=== PATIENT | male | born 1965 | race Caucasian/White ===

== ENCOUNTER 2019-11-01 17:20 | Inpatient (IN) | payer MEDICARE, SELFPAY ==
[2019-11-01] VITALS (8 sets, daily range): BP systolic 125–138; BP diastolic 69–82; PULSE 69–91; RESP 11–20; TEMP 36.5–36.8; O2SAT 99–100; BMI 20.9
--- NOTE | ~2019-11-01 | XR_ITS ---
EXAMINATION: XR chest 1V 11/01/2019 18:12 INDICATION: Chest pain PROCEDURE: PA view of the chest COMPARISON: No prior studies for comparison. FINDINGS: The lungs are clear. The cardiomediastinal silhouette is within normal limits. There are no pleural effusions. There is no pneumothorax suspected. IMPRESSION: 1: NO ACUTE CARDIOPULMONARY DISEASE. Reviewed, dictated and finalized at location A. [facility]
--- NOTE | ~2019-11-01 | MR_ITS ---
EXAMINATION: MR brain/brain stem wo con DATE: 11/03/2019 13:08 INDICATION: Hyponatremia. TECHNIQUE: Magnetic resonance imaging (MRI) of the brain and brainstem was performed without intraven ous contrast. Sequences included sagittal and axial T1-weighted FSE, axial diffusion-weighted FS EPI, axial T2*-weighted GRE, axial T2-weighted FLAIR Propeller, and axial T2-weighted Propeller. Apparent diffusion coefficient (ADC) maps were created. COMPARISON: Head CT 11/01/2019 FINDINGS: There is no intracranial hemorrhage, acute infarction, or abnormal intracranial mass lesion . There is a punctate focus of increased T2-weighted signal intensity in the right frontal lobe deep white matter, which is normal as an isolated finding. The ventricles are normal in size. The paranasa l sinuses are clear. The mastoid air cells are normal. The orbits are normal. IMPRESSION: 1. Normal brain. Reviewed, dictated and finalized at location A. SPECIALIST IMPRESSION: 1. Normal brain.
--- NOTE | ~2019-11-01 | CT_ITS ---
EXAMINATION: CT BRAIN W/O DATE: 11/01/2019 18:05 INDICATION: Altered mental status. Head injury. TECHNIQUE: Computed tomography (CT) of the head was performed without intravenous contrast. The dose- length product was 681.00 mGy-cm. The mA was adjusted according to patient size. Iterative reconstruc tion technique was employed. COMPARISON: No prior studies for comparison. FINDINGS: Normal brain parenchymal volume for age. Normal cameron-white differentiation. No acute intrac ranial hemorrhage, infarction, mass or mass effect. No ventriculomegaly or midline shift. Midline sagittal images demonstrate a normal corpus callosum, c raniovertebral junction and sella turcica. Basilar cisterns are patent. Paranasal sinuses and mastoids are pneumatized. No depressed skull fractures. IMPRESSION: 1. No acute intracranial abnormality. Reviewed, dictated and finalized at location A. [facility]
--- NOTE | 2019-11-01 17:30 | ED.AMS ---
HPI - Altered Mental Status General Chief Complaint: Altered Mental Status Stated Complaint: Not making any sense Time Seen by Provider: 11/01/19 17:24 Source: patient and family Mode of arrival: ambulatory Limitations: clinical condition History of Present Illness HPI narrative: A 54 y/o male presents to the ED with c/o AMS. Per patient's family, the patient is very confused and has not been listening today. The patient's son notes that today he received incoherent texts from the patient. His last known normal was on 10/30/19. The family adds that he has had a previous episode of AMS and was taken to the hospital and was diagnosed with dehydration. During his previous episode he had hallucinations. Today the pt reports LAGUNAS, but denies fever and cough. He adds that he has ABD problems and he is getting fat. The family states that the patient said he hit his head on the couch, but could not tell them any other details. He notes that he did not eat today. Pt takes Omeprazole daily. He is a smoker and drinks 15-20 beers per day. He has been heavily drinking for years, and only stops drinking when he runs out and has to have someone take him to the grocery store. A complete HPI is limited due to patient's clinical condition. complaint: altered mental status Onset (ago): unknown Severity: similar to previous episodes Consistency of symptoms: constant Context: alcohol abuse and history of similar presentation Associated symptoms: headaches and other (Possible HI) Related Data Home Medications Medication Instructions Recorded Confirmed omeprazole 40 mg PO BID 11/01/19 Allergies Allergy/AdvReac Type Severity Reaction Status Date / Time No Known Allergies Allergy Verified 11/01/19 17:41 Review of Systems Review of Systems: Narrative: A complete ROS is limited due to patient's clinical condition. Constitutional: Constitutional: Denies fever(s) Respiratory: Respiratory: Denies cough Neurologic: Reports headache(s) and Reports other (AMS, possible HI) [facility] Past Medical History Medical History (Updated 11/01/19 @ 19:49 by Mateo Gao MD) Alcohol abuse GERD (gastroesophageal reflux disease) Surgical History Surgical History (Updated 11/01/19 @ 17:56 by Shayla Osborn) Surgical history unknown Social History Social History (Updated 11/01/19 @ 17:57 by Shayla Osborn) Smoking status: Current every day smoker Tobacco type: cigarettes Second hand tobacco smoke exposure: Yes Alcohol intake: current Drinks per week: 140 Alcohol use details: 15-20 beers per day Exam Const: General: healthy appearing, no acute distress and well developed Nutritional Appearance: well nourished Orientation/consciousness: oriented to person and Other orientation findings (Alert) Limitations: no limitations HENMT: Head: normocephalic and atraumatic Ears: external ears normal General nose exam: No nasal discharge present and no epistaxis Face and sinus: face symmetric Mouth: Yes lip normal, Yes tongue normal and Yes moist mucous membranes Throat: other (No exudate, no erythema) Eyes: Conjunctivae: conjunctivae normal Sclera: sclerae normal EOM: EOMs intact bilaterally Neck: Neck: full ROM, no lymphadenopathy and supple Thyroid: thyroid normal Chest: Chest palpation & inspection: no tenderness Resp: Effort & Inspection: normal respiratory effort Auscultation: clear to auscultation bilaterally, no rales, no rhonchi, no wheezes and other (breath sounds equal) Cardio: Rate: regular rate Rhythm: regular rhythm Heart sounds: no gallops and no murmurs GI: Inspection: non-distended GI Palp: No abdominal tenderness and Yes Soft to palpation Auscultation: other (bowel sounds present) : General: Yes no CVA tenderness Back/Spine/Pelvis: Back: no CVA tenderness Thoracic/Lumbar Spine: thoracic and lumbar spine normal to inspection Skin: General skin exam: normal color and no rashes or lesions noted Neuro: G
[2019-11-01 18:01] LABS: Glucose Point of Care 122 (65-105)
[2019-11-01 18:07] LABS: Basophils Absolute Auto 0.1 K/mm3 (0.0-0.1); Basophils Percent Auto 0.4 % (0.2-1.2); Hemoglobin 14.8 g/dL (14.0-18.0); Immature Granulocyte Absolute 0.16 K/mm3 (0.00-0.031); Immature Granulocyte Percent A 1.2 % (0-0.5); Lymphocytes Absolute Auto 4.84 K/mm3 (0.9-3.2); Lymphocytes Percent Auto 35.5 % (18.3-44.2); Mean Corpuscular HGB Conc 35.2 g/dl (32-36); Mean Corpuscular Hemoglobin 31.3 pg (26-34); Mean Corpuscular Volume 88.8 fl (80-100); Mean Platelet Volume 9.9 fl (7.4-10.4); Monocytes Absolute Auto 0.5 K/mm3 (0.1-0.6); Monocytes Percent Auto 3.7 % (2.6-8.5); Neutrophils Absolute Auto 8.1 K/mm3 (1.3-6.7); Neutrophils Percent Auto 59.2 % (45.5-73.1); Platelet Count Result 283 k/mm3 (150-375); Red Blood Count 4.73 M/mm3 (4.6-6.20); Red Cell Distribution Width 11.7 % (11.5-14.5); White Blood Count 13.7 K/mm3 (4.5-10.0)
--- NOTE | 2019-11-01 18:11 | PCRCNOTE ---
[facility] DELAYED DO TO PT TAKEN TO CAT SCAN AND XRAY
[2019-11-01 18:19] LABS: Alanine Aminotransferase 18 U/L (4-50); Alkaline Phosphatase 78 U/L (38-126); Aspartate Amino Transferase 32 U/L (17-59); Bilirubin,Total 0.8 mg/dL (0.2-1.3); Blood Urea Nitrogen 9 mg/dL (9-20); Calcium 9.5 mg/dL (8.4-10.2); Carbon Dioxide 32 mmol/L (22-30); Chloride 76 mmol/L (98-107); Estimated CRCL calculation 91 ml/min; Estimated Glomerular Filt Rate > 60; Glucose 123 mg/dL (75-110); Lipase 18 U/L (23-300); Magnesium 1.9 mg/dL (1.6-2.3); Sodium 123 mmol/L (137-145)
[2019-11-01 18:20] LABS: Ethanol < 10 mg/dL (<10)
[2019-11-01 18:26] LABS: Alveolar/Arterial O2 Gradient 30.2 mmHg; Base Excess ABG 2.2 mEq/l (+/-2.0); Fractional Inspired Oxygen 21 %; HCO3 ABG 25.3 mEq/l (22.0-26.0); Oxygen Content ABG 19.8 %vol (16.0-22.0); Oxygen Saturation ABG 96.2 % (95.0-100.0); Oxyhemoglobin 91.5 % THb (90.0-100.0); PCO2 ABG 35.3 mmHg (35.0-45.0); PO2 ABG 77.3 mmHg (80.0-100.0); PO2 FiO2 Ratio Arterial Blood 3.68 %; Total Hemoglobin 15.4 g/dL (12.0-18.0); pH ABG 7.474 (7.350-7.450)
[2019-11-01 18:27] LABS: Device ROOM AIR; Site Drawn RIGHT BRACHIAL
[2019-11-01] MEDS: THIAMINE HCL INJ 500 MG in SODIUM CHLORIDE 0.9% IV 100 ML 210 MG IV CONT (18:28)
[2019-11-01 18:49] LABS: Prothrombin Time 12.4 Seconds (11.1-14.7)
[2019-11-01 18:54] LABS: Add Urine Microscopic? YES; Appearance Urine Clear (Clear); Bacteria Urine Trace /hpf; Bilirubin Urine Negative (Negative); Blood Urine Negative (Negative); Color Urine Yellow (Yellow); Glucose Urine UA Negative (Negative); Hyaline Casts Urine 20-29 /lpf; Ketones Urine 1+ mg/dL (Negative); Leukocyte Esterase Ur Negative LEU/UL (Negative); Mucus Urine Rare /lpf; Nitrate Urine Negative (Negative); Protein Urine 1+ mg/dL (Negative); Specific Grav Ur 1.018 (1.001-1.035); Squamous Epithelial Cell Urine Occasional /hpf (Few); Urobilinogen Urine Negative mg/dL (<2.0); WBC Urine 0-3 /hpf
[2019-11-01 18:56] LABS: Ammonia < 9 umol/L (9-30)
[2019-11-01 19:00] LABS: Free T4 Free Thyroxine 1.02 ng/mL (0.78-2.19)
--- NOTE | 2019-11-01 19:49 | PM.IMHP ---
H&P: HPI History of Present Illness Chief complaint: hyponatremia delirium Narrative: This is a 54 year old male known to drink 15-20 beers daily w/ history of GERD, RA, and recently diagnosed Leukemia who presented to the hospital with his son tonight secondary to acute confusion and not making sense. Apparently his son reports that the patient sent him some text messages in the morning that were just letters and didn't make any sense. He went to his house and found him wandering around confused. His son noticed that he was saying strange things like, we are almost ready to go to the [facility] . The patient told his son that he fell today and hit his head on the cough although this was not witnessed by anyone. The patient himself tonight is very confused and cannot tell me his home address or even follow simple commands on my exam. He is clearly encephalopathic. He denies any significant symptom although he states that he doesn't feel well. On my review he states that he thinks he has worsened blurry vision but hasn't seen an eye doctor in a long time. He denies any facial droop. No numbness, tingling, or focal weakness is reported. He denies any fever, chills, neck stiffness, headache, sore throat, difficulty swallowing, chest pain, shortness of breath, cough, abdominal pain, nausea, vomiting, dysuria, diarrhea or rectal bleeding. The patient's son hasn't noticed if the patinet has had any seizure like activity recently and there is no tongue biting or loss of urine reported. He has no previous history of strokes or heart disease. He has not started any new medications and its unknown if the patient is on diuretics. He was previously on prednisone for his RA but hasn't been on prednisone for some time. Tonight in the ER the patient was evaluted and Brain CT was unremarkable for any acute intracranial pathology. Routine labs demonstrated hyponatremia with a serum sodium of 123 mEq/dl. He also was found to have a mild leukocytosis of 13,700. The patient was started on hypertonic saline in the ER and we have been asked to admit him to the hospital. Review of Systems Review of Systems: All systems reviewed & are unremarkable except as noted in HPI and below PMFSH Past Medical History Medical History (Updated 11/02/19 @ 05:13 by Richy Mayers MD) Alcohol abuse GERD (gastroesophageal reflux disease) Leukemia Surgical History Surgical History Surgical history unknown Family History Family History (Updated 11/01/19 @ 20:00 by Richy Mayers MD) Father Gastric cancer Social History Social History Smoking packs per day: 2 Smoking cigarettes per day: 40.0 Years smoked: 36 Smoking pack-years: 72.00 Smoking status: Current every day smoker Tobacco type: cigarettes Second hand tobacco smoke exposure: Yes Alcohol intake: current Drinks per week: 20 Alcohol use details: 15-20 beers per day Gender identity (if verbalized by the patient): Male Spiritual care concerns: No Agree to blood products: Yes Meds Home Medications and Allergies Home Medications Medication Instructions Recorded Confirmed Type omeprazole 40 mg PO BID 11/01/19 11/01/19 History Allergies Allergy/AdvReac Type Severity Reaction Status Date / Time No Known Allergies Allergy Verified 11/01/19 17:41 Vital Signs Vital Signs - 24 hr 11/01/19 17:25 11/01/19 19:11 Temperature 36.8 C Pulse Rate 80 77 Respiratory Rate 16 11 L Blood Pressure 128/82 133/82 Pulse Oximetry 100 99 Exam Const: General: cooperative, no acute distress, alert and awake Nutritional Appearance: well nourished Orientation/consciousness: oriented to person, confusion and Other orientation findings (encephalopathic+++) HENMT: Head: normal to inspection General nose exam: Normal external nose present Face and sinus: normal faci
[2019-11-01] MEDS: SODIUM CHLORIDE 3% 500 ML 50 ML IV CONT (19:52)
[2019-11-01 20:28] LABS: Sodium Urine Random 41 meq/L
--- NOTE | 2019-11-01 20:40 | PC.NURSE ---
IMU Staff stated that Pt. room was still dirty and would call and advise when room was clean. automotive designer aware.
[2019-11-01 20:47] LABS: Amphetamine Screen Urine Negative (Negative); Barbiturate Screen Urine Negative (Negative); Benzodiazepines Screen Urine Negative (Negative); Cannabinoid Screen Urine Negative (Negative); Cocaine Screen Urine Negative (Negative); Methadone Screen Urine Negative (Negative); Opiate Screen Urine Negative (Negative); Phencyclidine Screen Urine Negative (Negative)
[2019-11-01 21:50] LABS: Blood Urea Nitrogen 9 mg/dL (9-20); Calcium 9.1 mg/dL (8.4-10.2); Carbon Dioxide 29 mmol/L (22-30); Chloride 77 mmol/L (98-107); Estimated CRCL calculation 103 ml/min; Estimated Glomerular Filt Rate > 60; Glucose 109 mg/dL (75-110); Potassium 4.4 mmol/L (3.4-5.0); Sodium 122 mmol/L (137-145)
--- NOTE | 2019-11-01 22:09 | ADMGEN ---
This patient, Denis Resendiz, was admitted to IMU Room 205-02. Patient/family oriented to hospital policies and general routines including ID bracelet, bed and alarms, visiting hours, pain management, procedures, bathroom and other care routines, personal items, smoking policy, room service/diet, and visiting hours. Valuables list has been completed. Information on how to activate the Rapid Response Team has been discussed. Patient/Family are encouraged to report perceived risks to care and to ask questions if they do not understand what they are told or what they should do.
[2019-11-01 22:27] LABS: Blood Urea Nitrogen 8 mg/dL (9-20); Calcium 9.1 mg/dL (8.4-10.2); Carbon Dioxide 28 mmol/L (22-30); Chloride 79 mmol/L (98-107); Estimated CRCL calculation 102 ml/min; Estimated Glomerular Filt Rate > 60; Glucose 104 mg/dL (75-110); Potassium 4.2 mmol/L (3.4-5.0); Sodium 121 mmol/L (137-145)
[2019-11-01] MEDS: FAMOTIDINE 20 MG/2 ML VIAL IV PUSH (23:01)
[2019-11-01] MEDS: LORAZEPAM INJ 2 MG/ML VIAL 1 MG IV PUSH (23:02)
[2019-11-01] MEDS: CHLORDIAZEPOXIDE 25 MG CAPSULE PO (23:33)
[2019-11-01] MEDS: SODIUM CHLORIDE 0.9% IV 1,000 ML 100 ML IV CONT (23:33)
[2019-11-02] VITALS (13 sets, daily range): BP systolic 127–151; BP diastolic 62–80; PULSE 72–100; RESP 16–22; TEMP 36.2–36.7; O2SAT 98–100
[2019-11-02 03:26] LABS: Blood Urea Nitrogen 7 mg/dL (9-20); Calcium 8.6 mg/dL (8.4-10.2); Carbon Dioxide 26 mmol/L (22-30); Chloride 84 mmol/L (98-107); Estimated CRCL calculation 117 ml/min; Estimated Glomerular Filt Rate > 60; Glucose 94 mg/dL (75-110); Potassium 3.8 mmol/L (3.4-5.0); Sodium 122 mmol/L (137-145)
[2019-11-02 04:37] LABS: Thyroid Stimulating Hormone Reflex 0.737 uIU/mL (0.465-4.68)
[2019-11-02] MEDS: CHLORDIAZEPOXIDE 25 MG CAPSULE PO ×4 (05:53→22:30)
--- NOTE | 2019-11-02 07:33 | PM.CNNEP ---
Assessment and Plan Assessment and plan (1) Hyponatremia: Code(s): E87.1 - Hypo-osmolality and hyponatremia Status: Acute Assessment and Plan: The patient has hyponatremia. He appears euvolemic. He says he has not had any nausea vomiting or diarrhea. He is not on diuretics. His son told the nurse that he had confusion like this before and they said that it was dehydration. His urine sodium is not low his blood pressure is okay and he does not have dry mucous membranes. He has a history of heavy alcohol abuse. Dear drinkers potomania is certainly in the realm of possibility because I do not think he eats very much besides his beer. However his urine specific gravity was not very low. Also usually the sodium will self correct fairly quickly if this is beer drinkers potomania. Because of his heavy liquid intake he could have a chronically low sodium as well. Hormones can cause low sodium as well. Thyroid is okay and we will check a cortisol level. Cancers can do this. He does have leukemia. He could have some other HIS and source of cancer as well. CONDENSER SETTER lesions can do this. His CT of the head is negative but we can get an MRI. Pulmonary lesions can do this but his chest x-ray is negative. Myeloma can cause pseudo hyponatremia and so we will check into this. His protein to albumin ratio is not extremely high and his urine anion gap is not negative. I would like to find out how his sodium is on a long-term basis so we can try to get records from his the [facility] me a doctor and his primary care doctor. We will treat the sodium with fluid restriction. Can check a sodium later today and consider another round of hypertonic saline if things are not improving. It will take a while for osmolalities to come back because those are send outs. We can continue the normal saline in case he is mildly dehydrated but if the sodium gets worse we will have to stop it. (2) Delirium due to general medical condition: Code(s): F05 - Delirium due to known physiological condition Status: Acute Assessment and Plan: Etiology of this is not clear. I am not convinced that this Sodium is doing this. The sodium could be chronic. He is so alert and his alcohol levels normal so does not seem like he is drunk. Drug screening was negative so does not look like he took anything. Alcohol withdrawal can do this but he does not have a fever. His son said he had his last drink yesterday but his alcohol level was negative. Dr. Mayers suggested Wernicke's encephalopathy. The patient is getting thiamine. We should get a neurology consultation. (3) Alcohol abuse: Code(s): F10.10 - Alcohol abuse, uncomplicated Status: Chronic (4) GERD (gastroesophageal reflux disease): Code(s): K21.9 - Gastro-esophageal reflux disease without esophagitis Status: Chronic Assessment and Plan: He is on Repka Omeprazole (5) Leukemia: Code(s): C95.90 - Leukemia, unspecified not having achieved remission Status: Chronic Assessment and Plan: His white cell count is actually not too high but does have an excess of lymphocytes. Possibly this is CLL? We can check a kappa lambda ratio and immunofixation as well as a serum viscosity to be sure that his hyponatremia or encephalopathy are not related to this. Additional Plan Discussed at length with Dr. Mayers last night and again this morning. History of Present Illness Reason for Consult Consult date: 11/02/19 Chief Complaint Chief complaint: hyponatremia delirium History of Present Illness Narrative: Denis is a very pleasant gentleman who has multiple medical problems. He has chronic alcohol abuse, drinking almost a case of beer per day. He has been doing this for a long time. He has GERD, rheumatoid arthritis, and leukemia. Apparently he was well before yesterday. His son found that he was confused yesterday, alert, talking, but not making any s
[2019-11-02 08:41] LABS: Blood Urea Nitrogen 7 mg/dL (9-20); Calcium 8.5 mg/dL (8.4-10.2); Carbon Dioxide 26 mmol/L (22-30); Chloride 84 mmol/L (98-107); Estimated CRCL calculation 102 ml/min; Estimated Glomerular Filt Rate > 60; Glucose 89 mg/dL (75-110); Potassium 3.7 mmol/L (3.4-5.0); Sodium 124 mmol/L (137-145)
[2019-11-02] MEDS: FAMOTIDINE 20 MG/2 ML VIAL IV PUSH ×2 (09:02→20:14)
[2019-11-02] MEDS: THIAMINE HCL 100 MG TABLET PO ×2 (09:02→20:14)
[2019-11-02] MEDS: SODIUM CHLORIDE 0.9% IV 1,000 ML 100 ML IV CONT (09:05)
--- NOTE | 2019-11-02 11:04 | PM.IMPN ---
Progress Note: A&P Assessment and Plan (1) Acute encephalopathy: Code(s): G93.40 - Encephalopathy, unspecified Status: Acute Assessment and Plan: Pt is still very confused at bedside, pleasant not agitated presently. Sitted in the room. Confusion can be secondary to alcohol withdrawal or hyponatremia. Correcting sodium levels, Mri brain ordered, CIMW protocol ordered. Drugs unlikley UDS was negative. (2) Hyponatremia: Code(s): E87.1 - Hypo-osmolality and hyponatremia Status: Acute Assessment and Plan: Possibly beer potomania given that he is known to drink 15-20 beers daily. Possibly SIADH in the differential as he has newly diagnosed leukemia. Light hydration, sodium monitoring. Nephrology rounding will consult neurology also. (3) Alcohol abuse: Code(s): F10.10 - Alcohol abuse, uncomplicated Status: Chronic Assessment and Plan: CIWA-AR protocol. Ativan withdrawal prophylaxis and scheduled Librium, Thiamine IV. (4) Leukemia: Code(s): C95.90 - Leukemia, unspecified not having achieved remission Status: Chronic Assessment and Plan: Continue heme-onc recommendations on dischage pt to follow his [facility] MDs (5) GERD (gastroesophageal reflux disease): Code(s): K21.9 - Gastro-esophageal reflux disease without esophagitis Status: Chronic Assessment and Plan: Continue PPI therapy. Pt states he has some GERD symptoms. Subjective Date/time seen: 11/02/19 11:04 Interval history: 54 year old male known to drink 15-20 beers daily w/ history of GERD, RA, and recently diagnosed Leukemia who presented to the hospital with his son teresa secondary to acute confusion and not making sense. Pt is confused history from daughter, pt smokes alot and drinks alot. History of leukemia sees doctor in [facility]. Na today is 124, continue to watch sodium levels. CT head and CXR is negative. Pt is awaiting MRI brain. Pt seen by nephrology continue recomendations. Review of Systems Review of Systems: All systems reviewed & are unremarkable except as noted in HPI and below Neurologic: Reports confusion Psychiatric: Psychiatric: Reports confusion Exam Const: General: cooperative, no acute distress, alert, awake and confusion Nutritional Appearance: well nourished Orientation/consciousness: oriented to person, confusion and Other orientation findings (encephalopathic+++) HENMT: Head: normal to inspection General nose exam: Normal external nose present Face and sinus: normal facial exam Mouth: Yes Normal oral and palatal mucosa present and Yes oropharynx normal Eyes: Pupils: Equal, round and reactive pupils present EOM: EOMs intact bilaterally Neck: Neck: supple and no JVD Thyroid: thyroid normal Lymphatic: lymphadenopathy not noted Resp: Effort & Inspection: normal respiratory effort Auscultation: clear to auscultation bilaterally Cardio: Rate: regular rate Rhythm: regular rhythm Heart sounds: no murmurs GI: Inspection: normal to inspection Auscultation: normal bowel sounds Skin: General skin exam: normal color and no rashes or lesions noted Neuro: General: oriented to person and confusion Cranial nerves: Yes CN's II-XII intact bilaterally and Yes Equal, round and reactive pupils present Speech: normal speech Motor exam (neuro): 5/5 motor strength present throughout Sensory Exam: normal sensation Extrem: General: normal to inspection and no edema Psych: Affect: normal affect Objective Data Vital Signs Vital Signs: Vital Signs - 24 hr 11/01/19 17:25 11/01/19 19:11 11/01/19 20:13 Temperature 36.8 C Pulse Rate 80 77 72 Pulse Rate [Monitor] Respiratory Rate 16 11 L 16 Blood Pressure 128/82 133/82 125/80 Pulse Oximetry 100 99 100 11/01/19 20:14 11/01/19 21:35 11/01/19 22:00 Temperature 36.7 C Pulse Rate 69 91 Pulse Rate [Monitor] 71 Respiratory Rate 14 20 Blood Pressure 138/73 125/80 138/73 P
[2019-11-02 11:39] LABS: Blood Urea Nitrogen 7 mg/dL (9-20); Calcium 8.7 mg/dL (8.4-10.2); Carbon Dioxide 26 mmol/L (22-30); Chloride 86 mmol/L (98-107); Estimated CRCL calculation 102 ml/min; Estimated Glomerular Filt Rate > 60; Glucose 91 mg/dL (75-110); Sodium 126 mmol/L (137-145)
[2019-11-02 12:08] LABS: Cortisol Random 5.46 ug/dL
[2019-11-02 15:28] LABS: Blood Urea Nitrogen 9 mg/dL (9-20); Calcium 8.8 mg/dL (8.4-10.2); Carbon Dioxide 28 mmol/L (22-30); Chloride 88 mmol/L (98-107); Estimated CRCL calculation 102 ml/min; Estimated Glomerular Filt Rate > 60; Glucose 99 mg/dL (75-110); Potassium 3.9 mmol/L (3.4-5.0); Sodium 130 mmol/L (137-145)
[2019-11-02] MEDS: DESMOPRESSIN ACETATE 4 MCG/ML AMP 2 MCG IV PUSH (17:34)
[2019-11-02] MEDS: SODIUM CHLORIDE 0.45% 1,000 ML 50 ML IV CONT (17:35)
[2019-11-02 19:22] LABS: Blood Urea Nitrogen 10 mg/dL (9-20); Calcium 8.7 mg/dL (8.4-10.2); Carbon Dioxide 28 mmol/L (22-30); Chloride 88 mmol/L (98-107); Estimated CRCL calculation 102 ml/min; Estimated Glomerular Filt Rate > 60; Glucose 106 mg/dL (75-110); Potassium 3.9 mmol/L (3.4-5.0); Sodium 130 mmol/L (137-145)
[2019-11-03] VITALS (15 sets, daily range): BP systolic 123–143; BP diastolic 59–89; PULSE 63–102; RESP 14–22; TEMP 36.2–36.7; O2SAT 97–100
[2019-11-03 00:12] LABS: Blood Urea Nitrogen 12 mg/dL (9-20); Calcium 8.9 mg/dL (8.4-10.2); Carbon Dioxide 28 mmol/L (22-30); Chloride 91 mmol/L (98-107); Estimated CRCL calculation 90 ml/min; Estimated Glomerular Filt Rate > 60; Glucose 96 mg/dL (75-110); Potassium 3.7 mmol/L (3.4-5.0); Sodium 130 mmol/L (137-145)
[2019-11-03] MEDS: CHLORDIAZEPOXIDE 25 MG CAPSULE PO ×4 (04:17→22:27)
--- NOTE | 2019-11-03 08:03 | PM.PNNEP ---
Progress Note: A&P Assessment and Plan (1) Hyponatremia: Code(s): E87.1 - Hypo-osmolality and hyponatremia Status: Acute Assessment and Plan: The patient has hyponatremia. He looks euvolemic. Baseline sodium was 123. He briefly dropped to 121 and then returned to 123. His sodium over the next 24 hours marleen to 130. The trend was a bit fast early on and so DDAVP was given to slow things down. Will check another sodium level today. TSH is okay. Cortisol is low normal so will check Cortrosyn stim test. He says he has had 2 endoscopies and 2 colonoscopies. The former showed Babin's esophagus. The latter studies were negative. Chest x-ray is clear Head CT was normal Urine sodium was not low Serum protein electrophoresis, serum and urine osmolality are all pending. He appears euvolemic. He says he has not had any nausea vomiting or diarrhea. He is not on diuretics. His son told the nurse that he had confusion like this before and they said that it was dehydration. His urine sodium is not low his blood pressure is okay and he does not have dry mucous membranes. He has a history of heavy alcohol abuse. Dear drinkers potomania is certainly in the realm of possibility because I do not think he eats very much besides his beer. However his urine specific gravity was not very low. Also usually the sodium will self correct fairly quickly if this is beer drinkers potomania. Because of his heavy liquid intake he could have a chronically low sodium as well. Hormones can cause low sodium as well. Thyroid is okay and we will check a cortisol level. he tells me he is on a mild bp pill. he can't remember the name. no recoreds from pcp yet. delores isnt open yet. (2) Delirium due to general medical condition: Code(s): F05 - Delirium due to known physiological condition Status: Acute Assessment and Plan: Etiology of this is not clear. improved. ?tail end of DTs? tox screens and BAL okay. neuro consult pending. (3) Alcohol abuse: Code(s): F10.10 - Alcohol abuse, uncomplicated Status: Chronic (4) GERD (gastroesophageal reflux disease): Code(s): K21.9 - Gastro-esophageal reflux disease without esophagitis Status: Chronic Assessment and Plan: He is on Omeprazole barretts by what he says. no records yet (5) Leukemia: Code(s): C95.90 - Leukemia, unspecified not having achieved remission Status: Chronic Assessment and Plan: His white cell count is actually not too high but does have an excess of lymphocytes. Possibly this is CLL? k/l pending as is viscosity. Subjective Date/time seen: 11/03/19 08:03 Interval history: Patient is alert and oriented. Much calmer and focus today. Eager for discharge Review of Systems Constitutional: Constitutional: Reports no additional constitutional complaints Eyes: Eyes: Reports no additional eye complaints ENT: Reports system reviewed and no additional complaints, except as documented Cardiovascular: Cardiovascular: Reports no additional cardiovascular complaints Exam Narrative: Exam Narrative: Well developed well-nourished in no acute distress Lungs clear Heart regular without rub Abdomen bowel sounds positive soft nontender Extremities no edema Skin no rash Objective Data Vital Signs Vital Signs: Vital Signs - 24 hr 11/02/19 10:00 11/02/19 12:00 11/02/19 14:00 Temperature 36.4 C Pulse Rate 81 93 77 Pulse Rate [Monitor] 77 Respiratory Rate 18 Blood Pressure 151/71 H Pulse Oximetry 99 11/02/19 16:00 11/02/19 18:00 11/02/19 20:00 Temperature 36.7 C Pulse Rate 92 100 88 Pulse Rate [Monitor] 77 77 Respiratory Rate 18 Blood Pressure 131/72 127/80 Pulse Oximetry 100 11/02/19 20:46 11/02/19 22:00 11/03/19 00:00 Temperature 36.2 C L Pulse Rate 91 82 74 Pulse Rate [Monitor] Respiratory Rate 22 H Blood Pressure 127
[2019-11-03] MEDS: FAMOTIDINE 20 MG/2 ML VIAL IV PUSH ×2 (08:18→20:25)
[2019-11-03] MEDS: COSYNTROPIN 0.25 MG/ML VIAL IV PUSH (08:18)
[2019-11-03] MEDS: THIAMINE HCL 100 MG TABLET PO ×2 (08:18→20:25)
[2019-11-03 08:31] LABS: Albumin Level 3.9 g/dL (3.5-5.1); Blood Urea Nitrogen 10 mg/dL (9-20); Calcium 8.8 mg/dL (8.4-10.2); Carbon Dioxide 24 mmol/L (22-30); Chloride 91 mmol/L (98-107); Estimated CRCL calculation 118 ml/min; Estimated Glomerular Filt Rate > 60; Glucose 90 mg/dL (75-110); Phosphorus 3.4 mg/dL (2.5-4.5); Potassium 3.7 mmol/L (3.4-5.0); Sodium 129 mmol/L (137-145)
--- NOTE | 2019-11-03 13:37 | CONS_ITS ---
DATE OF CONSULTATION: Patient of Dr. Richy Mayers. HISTORY: This 54 years old right-handed male has been admitted to [facility] through the emergency room with the complaint of delirium with hyponatremia. The patient has ongoing history of 1. GERD. 2. Rheumatoid arthritis. 3. Recent diagnosis of leukemia. 4. Heavy drinking 15 to 20 beers a day. He was brought in for the complaint of acute confusion. His son went to the house and found him wandering around, confused, saying strange things, he also had fallen today on the day of admission, was complaining of blurred vision. No seizures were noted by the son. He does have a past history as mentioned before of 1. Alcohol abuse. 2. GERD. 3. Leukemia. 4. 72 smoking pack years and currently drinking alcohol daily, at least 20 per week. He was taking omeprazole 40 mg twice a day. ALLERGIES: HE IS NOT ALLERGIC TO ANY MEDICATION. ? On admission, he is awake, alert, afebrile. PHYSICAL EXAMINATION: GENERAL: On examination today, he is awake, alert, cooperative, in no obvious acute distress. HEENT: Head is normocephalic with no cranial bruit. Ear, nose, throat examination is normal. NECK: Supple with no cervical bruit. No thyromegaly. No lymphadenopathy. HEART: Regular. LUNGS: Clear. ABDOMEN: Soft. NEUROLOGICAL: He is awake, alert, oriented x3. His speech no dysphasic, no dysarthric, no dysphonic. Pupils round and regular. Garcia of vision full. Extraocular movements full. Face symmetrical. Tongue midline. Motor examination revealed him to have normal strength and tone. He had obvious deformity of the metacarpophalangeal joints and interphalangeal joints bilaterally from the long duration of rheumatoid arthritis. Deep plantar flexors are otherwise symmetrical. Plantars are downgoing. There is no evidence of gross cerebellar deficits. LABORATORY DATA: Evaluation up until now include CBC with leukocytosis, WBC 13.7, hemoglobin 14.8, normal basic metabolic panel except sodium only 123, CO2 32, BUN 9, and glucose of 123. Hepatic enzymes normal with AST 32, ALT 18, alkaline phos 78, and albumin 5.0. UA with 1+ protein. Chest x-ray negative. CT scan of the head negative. IMPRESSION AND PLAN: Evaluation up until now also includes the chest x-ray and CT head as mentioned above. At present, the patient is taking only omeprazole. The patient was advised to continue the treatment as such. We will obtain the EEG. In addition, he has also been seen by the repair table operator for hypo-osmolality and hyponatremia. As per review of their notes, his hyponatremia has been attributed to the chronic heavy liquid intake. Cortisol level is being checked and MRI is being obtained and we will be followed for the hyponatremia on a long-term basis because of unclear etiology otherwise. TOMY MCLAIN M.D. CAR PICK UP DRIVER CAR PICK UP DRIVER D I MT: Dwayne
--- NOTE | 2019-11-03 14:20 | PM.IMPN ---
Progress Note: A&P Assessment and Plan (1) Acute encephalopathy: Code(s): G93.40 - Encephalopathy, unspecified Status: Acute Assessment and Plan: Pt is still very confused at bedside, pleasant not agitated presently. Confusion can be secondary to alcohol withdrawal or hyponatremia. Correcting sodium levels. CT brain and mri are negative. CIMW protocol ordered. Drugs unlikley UDS was negative. (2) Hyponatremia: Code(s): E87.1 - Hypo-osmolality and hyponatremia Status: Acute Assessment and Plan: Possibly beer potomania given that he is known to drink 15-20 beers daily. Possibly SIADH in the differential as he has newly diagnosed leukemia. Light hydration, sodium monitoring. Nephrology rounding will consult neurology also. (3) Alcohol abuse: Code(s): F10.10 - Alcohol abuse, uncomplicated Status: Chronic Assessment and Plan: CIWA-AR protocol. Ativan withdrawal prophylaxis and scheduled Librium, Thiamine IV. (4) Leukemia: Code(s): C95.90 - Leukemia, unspecified not having achieved remission Status: Chronic Assessment and Plan: Continue heme-onc, pt to follow his [facility] MDs (5) GERD (gastroesophageal reflux disease): Code(s): K21.9 - Gastro-esophageal reflux disease without esophagitis Status: Chronic Assessment and Plan: Continue PPI therapy. Pt states he has some GERD symptoms. Subjective Date/time seen: 11/03/19 14:20 Interval history: 54 year old male known to drink 15-20 beers daily w/ history of GERD, RA, and recently diagnosed Leukemia who presented to the hospital with his son teresa secondary to acute confusion. Pt is confused history from daughter, pt smokes alot and drinks alot. History of leukemia sees doctor in [facility]. Na today is 129, continue to watch sodium levels. CT head and CXR is negative. MRi is negative Pt seen by nephrology continue recomendations. Hopeful discharge soon. Review of Systems Review of Systems: All systems reviewed & are unremarkable except as noted in HPI and below Neurologic: Reports confusion Psychiatric: Psychiatric: Reports confusion Exam Const: General: confusion and other (mild pleasantly confused ) Orientation/consciousness: confusion HENMT: Head: normal to inspection General nose exam: Normal external nose present Face and sinus: normal facial exam Mouth: Yes Normal oral and palatal mucosa present and Yes oropharynx normal Eyes: Pupils: Equal, round and reactive pupils present EOM: EOMs intact bilaterally Neck: Neck: supple and no JVD Resp: Effort & Inspection: normal respiratory effort Auscultation: clear to auscultation bilaterally Cardio: Rate: regular rate Rhythm: regular rhythm Heart sounds: no murmurs GI: Inspection: normal to inspection Auscultation: normal bowel sounds Skin: General skin exam: normal color and no rashes or lesions noted Neuro: General: oriented to person and confusion Cranial nerves: Yes CN's II-XII intact bilaterally and Yes Equal, round and reactive pupils present Speech: normal speech Motor exam (neuro): 5/5 motor strength present throughout Sensory Exam: normal sensation Extrem: General: normal to inspection and no edema Psych: Affect: normal affect Objective Data Vital Signs Vital Signs: Vital Signs - 24 hr 11/02/19 16:00 11/02/19 18:00 11/02/19 20:00 Temperature 36.7 C Pulse Rate 92 100 88 Pulse Rate [Monitor] 77 77 Respiratory Rate 18 Blood Pressure 131/72 127/80 Pulse Oximetry 100 11/02/19 20:46 11/02/19 22:00 11/03/19 00:00 Temperature 36.2 C L Pulse Rate 91 82 74 Pulse Rate [Monitor] Respiratory Rate 22 H Blood Pressure 127/80 Pulse Oximetry 98 11/03/19 00:33 11/03/19 02:00 11/03/19 04:00 Temperature 36.2 C L 36.3 C L Pulse Rate 71 64 63 Pulse Rate [Monitor] Respiratory Rate 18 14 Blood Pressure 143/83 H 142/78 H Pulse Oximetry 100 99 11/03/19 0
[2019-11-03] MEDS: SODIUM CHLORIDE 0.45% 1,000 ML 50 ML IV CONT (14:53)
[2019-11-03] MEDS: NICOTINE (*PBKC) 21 MG PATCH 1 PATCH TRANSDERM (20:27)
[2019-11-04] VITALS (10 sets, daily range): BP systolic 137–151; BP diastolic 69–90; PULSE 78–128; RESP 16–20; TEMP 36.3–36.7; O2SAT 98–100
[2019-11-04 04:59] LABS: Osmolality, Urine 493 mOsm/kg (50-1200)
[2019-11-04 05:01] LABS: Viscosity 1.5 rel to H2O (1.5-1.9)
[2019-11-04 05:46] LABS: Blood Urea Nitrogen 11 mg/dL (9-20); Calcium 8.7 mg/dL (8.4-10.2); Carbon Dioxide 28 mmol/L (22-30); Chloride 96 mmol/L (98-107); Estimated CRCL calculation 103 ml/min; Estimated Glomerular Filt Rate > 60; Glucose 101 mg/dL (75-110); Potassium 3.5 mmol/L (3.4-5.0); Sodium 133 mmol/L (137-145)
[2019-11-04] MEDS: CHLORDIAZEPOXIDE 25 MG CAPSULE PO ×2 (05:58→12:40)
[2019-11-04] MEDS: FAMOTIDINE 20 MG/2 ML VIAL IV PUSH (08:30)
[2019-11-04] MEDS: THIAMINE HCL 100 MG TABLET PO (08:30)
--- NOTE | 2019-11-04 09:44 | P.CDI_ITS ---
CDI Query Clarification Request -Acute encephalopathy has been documented Please further specify type of encephalopathy * Metabolic * Toxic * Hepatic * Hypertensive * Other * Unable to determine
--- NOTE | 2019-11-04 09:44 | WPDCDIQUERY2 ---
CDI Query Clarification Request -Acute encephalopathy has been documented Please further specify type of encephalopathy Metabolic Toxic Hepatic Hypertensive Other Unable to determine
--- NOTE | 2019-11-04 12:02 | PM.PNNEP ---
Progress Note: A&P Assessment and Plan (1) Hyponatremia: Code(s): E87.1 - Hypo-osmolality and hyponatremia Status: Acute Assessment and Plan: sodium back to baseline if not better TSH and cortisol okay probably related to excessive EtOH intake based on negative testing to date follow trend (2) Delirium due to general medical condition: Code(s): F05 - Delirium due to known physiological condition Status: Acute Assessment and Plan: Neurology assessment and recommendations noted (3) Alcohol abuse: Code(s): F10.10 - Alcohol abuse, uncomplicated Status: Chronic Assessment and Plan: chronic issue (4) GERD (gastroesophageal reflux disease): Code(s): K21.9 - Gastro-esophageal reflux disease without esophagitis Status: Chronic Assessment and Plan: on omeprazole per patient, has Babin's esophagus Will continue to follow -- not opposed to discharge from renal perspective. Subjective Date/time seen: 11/04/19 12:02 No new issues or problems to report at this time; feels reasonably well; anxious for discharge. Exam Narrative: Exam Narrative: General: WD/WN male in NAD Heart: normal S1 and S2; no rub Lungs: clear to auscultation Abdomen: soft, nontender, nondistended, positive bowel sounds Extremities: no cyanosis or clubbing; no edema Skin: warm and dry Objective Data Vital Signs Vital Signs: Vital Signs Temp Pulse Pulse Resp BP Pulse Ox 11/04/19 08:23 36.5 C 93 18 151/88 H 100 11/04/19 08:00 93 18 151/88 H 100 11/04/19 06:00 87 11/04/19 04:34 36.3 C L 86 20 143/90 H 98 11/04/19 04:00 81 11/04/19 02:00 101 H 11/04/19 00:00 90 11/03/19 23:42 36.5 C 85 20 134/89 97 11/03/19 22:00 102 H 11/03/19 20:13 36.7 C 87 22 H 123/75 99 11/03/19 20:00 74 86 123/75 11/03/19 17:51 70 11/03/19 16:00 36.6 C 92 86 16 128/59 L 99 11/03/19 14:00 76 Intake/Output Intake/Output: Intake & Output 11/01/19 11/02/19 11/03/19 11/04/19 23:59 23:59 23:59 23:59 Intake Total 105 0077 1240 Output Total 6246 7950 125 Balance 105 -1003 -660 -125 Meds/Results Medications: Active Medications Generic Name Dose Route Start Last Admin Trade Name Freq PRN Reason Stop Dose Admin Chlordiazepoxide HCl 25 mg 11/01/19 23:10 11/04/19 05:58 Librium Po PO 25 mg Q6H LILIAN Administration Famotidine 20 mg 11/01/19 21:00 11/04/19 08:30 Pepcid Iv IV PUSH 20 mg Q12HR LILIAN Administration Sodium Chloride 1,000 mls @ 50 mls/hr 11/02/19 16:30 11/03/19 14:53 Sodium Chloride 0.45% IV CONT 50 mls/hr .Q20H LILIAN Administration Lorazepam 1 mg 11/01/19 19:46 11/01/19 23:02 Ativan Inj IV PUSH 1 mg Q6H PRN Administration Alcohol Withdrawal Nicotine 1 patch 11/02/19 13:25 11/03/19 20:27 Nicoderm Cq 21 Mg TRANSDERM 1 patch QAM LILIAN Administration Ondansetron HCl 4 mg 11/01/19 19:41 Zofran Inj IV PUSH Q4H PRN Nausea Thiamine HCl 100 mg 11/02/19 09:00 11/04/19 08:30 Vitamin B-1 PO 100 mg Q12HR LILIAN Administration Radiology Results: ITS Impressions Head CT 11/01/19 18:08 IMPRESSION: 1. No acute intracranial abnormality. Chest X-Ray 11/01/19 18:16 IMPRESSION: 1: NO ACUTE CARDIOPULMONARY DISEASE. Brain MRI 11/03/19 13:31 IMPRESSION: 1. Normal brain. Labs Labs: Laboratory Tests 11/01/19 18:01 11/04/19 04:25
[2019-11-04] MEDS: SODIUM CHLORIDE 0.45% 1,000 ML 50 ML IV CONT (12:39)
--- NOTE | 2019-11-04 14:22 | WPDNEUROPN ---
Progress Note: A&P Assessment and Plan (1) GERD (gastroesophageal reflux disease): Code(s): K21.9 - Gastro-esophageal reflux disease without esophagitis Status: Chronic (2) Alcohol abuse: Code(s): F10.10 - Alcohol abuse, uncomplicated Status: Chronic (3) Acute encephalopathy: Code(s): G93.40 - Encephalopathy, unspecified Status: Acute (4) Leukemia: Code(s): C95.90 - Leukemia, unspecified not having achieved remission Status: Chronic (5) Hyponatremia: Code(s): E87.1 - Hypo-osmolality and hyponatremia Status: Acute (6) Delirium due to general medical condition: Code(s): F05 - Delirium due to known physiological condition Status: Acute Additional Plan stable/home Review of Systems Review of Systems: All systems reviewed & are unremarkable except as noted in HPI and below Exam Const: General: cooperative, healthy appearing, comfortable and no acute distress Eyes: General: appearance normal, both eyes and all related structures Resp: Effort & Inspection: normal respiratory effort and able to speak in complete sentences Auscultation: clear to auscultation bilaterally GI: Auscultation: normal bowel sounds Skin: General skin exam: no rashes or lesions noted Neuro: General: patient oriented x3 Cranial nerves: Yes CN's II-XII intact bilaterally, Yes Equal, round and reactive pupils present, Yes Nystagmus not present, Yes Normal facial strength present, Yes Midline tongue present, Yes Normal gag reflex present, Yes Ability to bilaterally rotate head present and Yes Ability to bilaterally elevate shoulders present Cognition (Neuro): normal cognition Speech: normal speech Motor exam (neuro): 5/5 motor strength present throughout Sensory Exam: normal sensation Deep tendon reflexes (DTR's): Right triceps reflex intensity grade: 1+, Left triceps reflex intensity grade: 1+, Rt Biceps (C5, C6): 1+, Left biceps reflex intensity grade: 1+, Right brachioradialis reflex intensity grade: 1+, Left brachioradialis reflex intensity grade: 1+, Right patellar reflex intensity grade: 1+, Left patellar reflex intensity grade: 1+ and Left ankle reflex intensity grade: 1+ Plantar Reflex Responses: downgoing: bilateral Coordination: [id number] test normal Objective Data Vital Signs Vital Signs: Vital Signs - 24 hr 11/03/19 16:00 11/03/19 17:51 11/03/19 20:00 Temperature 36.6 C Pulse Rate 92 70 74 Pulse Rate [Monitor] 86 86 Respiratory Rate 16 Blood Pressure 128/59 L 123/75 Pulse Oximetry 99 11/03/19 20:13 11/03/19 22:00 11/03/19 23:42 Temperature 36.7 C 36.5 C Pulse Rate 87 102 H 85 Pulse Rate [Monitor] Respiratory Rate 22 H 20 Blood Pressure 123/75 134/89 Pulse Oximetry 99 97 11/04/19 00:00 11/04/19 02:00 11/04/19 04:00 Temperature Pulse Rate 90 101 H 81 Pulse Rate [Monitor] Respiratory Rate Blood Pressure Pulse Oximetry 11/04/19 04:34 11/04/19 06:00 11/04/19 08:00 Temperature 36.3 C L Pulse Rate 86 87 93 Pulse Rate [Monitor] Respiratory Rate 20 18 Blood Pressure 143/90 H 151/88 H Pulse Oximetry 98 100 11/04/19 08:23 11/04/19 13:14 Temperature 36.5 C 36.7 C Pulse Rate 93 95 Pulse Rate [Monitor] Respiratory Rate 18 16 Blood Pressure 151/88 H 137/69 Pulse Oximetry 100 100 Intake/Output Intake/Output: Intake & Output 11/01/19 11/02/19 11/03/19 11/04/19 23:59 23:59 23:59 23:59 Intake Total 105 1547 1240 1000 Output Total 2550 1900 125 Balance 105 1003 660 875 Meds/Results Medications: Active Medications Generic Name Dose Route Start Last Admin Trade Name Alonzo PRN Reason Stop Dose Admin Chlordiazepoxide HCl 25 mg 11/01/19 23:10 11/04/19 12:40 Librium Po PO 25 mg Q6H LILIAN Administration Famotidine 20 mg 11/01/19 21:00 11/04/19 08:30 Pepcid Iv IV PUSH 20 mg Q12HR LILIAN Administration Sodium Chloride 1,000 mls @ 50 mls/hr 11/02/19 16:30
--- NOTE | 2019-11-04 14:28 | PM.DS ---
DS: Diagnosis Admitting Diagnosis Admitting Diagnosis: Encephalopathy, unspecified Discharge Diagnosis (1) Acute encephalopathy: Code(s): G93.40 - Encephalopathy, unspecified Status: Acute Assessment and Plan: Unable to determine the cause the acute encephalopathy Manuel possibly secondary to ETOH withdrawal, versus electrolyte imbalance versus DOMINIC CIMW protocol scores low Drugs unlikley UDS was negative. Neuro consulted-clear discharge (2) Hyponatremia: Code(s): E87.1 - Hypo-osmolality and hyponatremia Status: Acute Assessment and Plan: Possibly beer potomania given that he is known to drink 15-20 beers daily. Possibly SIADH in the differential as he has newly diagnosed leukemia. Neurology consulted-to discharge (3) Alcohol abuse: Code(s): F10.10 - Alcohol abuse, uncomplicated Status: Chronic Assessment and Plan: CIWA-AR protocol. Ativan withdrawal prophylaxis and scheduled Librium, Thiamine IV. (4) Leukemia: Code(s): C95.90 - Leukemia, unspecified not having achieved remission Status: Chronic Assessment and Plan: Continue heme-onc, pt to follow his [facility] MDs (5) GERD (gastroesophageal reflux disease): Code(s): K21.9 - Gastro-esophageal reflux disease without esophagitis Status: Chronic Assessment and Plan: Continue PPI therapy. Pt states he has some GERD symptoms. DS: Summary Time Spent with Patient Time attestation: Total time spent providing and/or coordinating discharge services:60 Exam Const: General: confusion and other (mild pleasantly confused ) Nutritional Appearance: well nourished Orientation/consciousness: oriented to person and confusion HENMT: Head: normal to inspection General nose exam: Normal external nose present Face and sinus: normal facial exam Mouth: Yes Normal oral and palatal mucosa present and Yes oropharynx normal Eyes: Pupils: Equal, round and reactive pupils present EOM: EOMs intact bilaterally Neck: Neck: supple and no JVD Thyroid: thyroid normal Lymphatic: lymphadenopathy not noted Resp: Effort & Inspection: normal respiratory effort Auscultation: clear to auscultation bilaterally Cardio: Rate: regular rate Rhythm: regular rhythm Heart sounds: no murmurs GI: Inspection: normal to inspection Auscultation: normal bowel sounds Skin: General skin exam: normal color and no rashes or lesions noted Neuro: General: oriented to person and confusion Cranial nerves: Yes CN's II-XII intact bilaterally and Yes Equal, round and reactive pupils present Speech: normal speech Motor exam (neuro): 5/5 motor strength present throughout Sensory Exam: normal sensation Extrem: General: normal to inspection and no edema Psych: Affect: normal affect DS: Data Data Completed and Pending Labs on day of discharge: Labs from last 24 hours 11/04/19 11/02/19 11/02/19 04:25 11:10 11:09 Serum Viscosity 1.5 Sodium 133 L Potassium 3.5 Chloride 96 L Carbon Dioxide 28 BUN 11 Creatinine 0.70 Estim Creat Clear Calc 103 Estimated GFR > 60 Glucose 101 Serum Osmolality 261 L Calcium 8.7 Urine Osmolality Urine Immunofixation 11/02/19 11/01/19 10:44 20:16 Serum Viscosity Sodium Potassium Chloride Carbon Dioxide BUN Creatinine Estim Creat Clear Calc Estimated GFR Glucose Serum Osmolality Calcium Urine Osmolality 493 Urine Immunofixation see below Discharge Plan Discharge Attending physician on discharge: Henri Morales Consulting providers: Dennis Gonzalez ; Andre Salazar Discharging Clinician: Kendra Kolb Anticipated Discharge Date/Time: 11/04/19 14:28 Patient Disposition: Home, Self-Care Activity: unlimited and other - see discharge instructions Diet: regular Discharge Instructions: Ok to discharge if cleared by specialty Take medications as prescibed. Follow up with
[2019-11-05 05:19] LABS: Albumin 3.7 g/dL (3.8-4.8); Alpha 1 Globulin 0.4 g/dL (0.2-0.3); Alpha 2 Globulin 0.7 g/dL (0.5-0.9); Beta 1 Globulin 0.3 g/dL (0.4-0.6); Gamma Globulin 0.9 g/dL (0.8-1.7); Protein, Total 6.2 g/dL (6.1-8.1)
[2019-11-08 00:15] LABS: Kappa\\Lambda Light Chains 0.49 (0.26-1.65); Lambda Light Chain 23.5 mg/L (5.7-26.3)
== END 2019-11-04 16:10 | disposition home or self-care (01) | DRG 641 ==
LOC: ANHED 19:49 → ANHIMU 23:20
PROVIDERS: Family Medicine; Internal Medicine Nephrology; Admitting Provider Family Medicine; Emergency Provider Emergency Medicine; Visit Provider Family Medicine
DX: E87.1 Hypo-osmolality and hyponatremia (principal); C95.90 Leukemia, unspecified not having achieved remission; F05 Delirium due to known physiological condition; G93.40 Encephalopathy, unspecified; K21.9 Gastro-esophageal reflux disease without esophagitis; F10.10 Alcohol abuse, uncomplicated; F17.210 Nicotine dependence, cigarettes, uncomplicated; M06.9 Rheumatoid arthritis, unspecified
CPT/HCPCS: 36415; 36600; 70450; 70551; 71045; 80048; 80053; 80069; 80307; 81001; 82140; 82533; 82805; 83690; 83735; 83883; 83930; 83935; 84155; 84165; 84300; 84439; 84443; 85025; 85610; 85810; 86334; 86335; 96361; 96365; 99291; A9270; J0834; J2060; J2597; J3411; J7030; J7131

== ENCOUNTER → 2020-12-03 11:19 | Outpatient (CLI) | payer MEDICARE, SELFPAY ==
--- NOTE | ~2020-12-03 | XR_ITS ---
XR finger 1st RT min 2V DATE: 12/03/2020 11:45 INDICATION: Squamous cell carcinoma of skin of right upper limb TECHNIQUE: 3 views COMPARISON: None FINDINGS: There is osteoarthritic change and flexion deformity at the first metacarpophalangeal joint . No fracture or dislocation of the first digit is evident. There appears to be amputation of the secon d digit phalanges but this area is only partially visualized. IMPRESSION: Osteoarthritic change in flexion deformity at first metacarpophalangeal joint Reviewed, dictated and finalized at location B. IMPRESSION: Osteoarthritic change in flexion deformity at first metacarpophalan geal joint
== END ==
PROVIDERS: PCP Family Medicine; Visit Provider Nurse Practitioner
DX: C44.622 Squamous cell carcinoma of skin of right upper limb, including shoulder (principal); M19.041 Primary osteoarthritis, right hand
CPT/HCPCS: 73140

== ENCOUNTER → 2020-12-15 02:04 | Outpatient (CLI) | payer MEDICARE, SELFPAY ==
[2020-12-15 19:33] LABS: SARS-CoV-2 RNA PCR Negative
== END ==
PROVIDERS: PCP Family Medicine; Visit Provider Surgery Plastic and Reconstructive Surgery
DX: Z01.812 Encounter for preprocedural laboratory examination (principal); Z20.822 Contact with and (suspected) exposure to COVID-19
CPT/HCPCS: C9803; U0003; U0005

== ENCOUNTER → 2020-12-29 02:33 | Outpatient (CLI) | payer MEDICARE, SELFPAY ==
[2020-12-29 19:43] LABS: SARS-CoV-2 RNA PCR Negative
== END ==
PROVIDERS: PCP Family Medicine; Visit Provider Surgery Plastic and Reconstructive Surgery
DX: Z01.812 Encounter for preprocedural laboratory examination (principal); Z20.822 Contact with and (suspected) exposure to COVID-19
CPT/HCPCS: C9803; U0003; U0005

== ENCOUNTER 2021-01-01 00:17 | Day surgery (SDC) | payer MEDICARE, SELFPAY ==
[2020-12-10 15:15] VITALS: BMI 23.0
--- NOTE | 2020-12-18 12:13 | PC.NURSE ---
Pt states no changes in health history or medications since original interview. New Covid date/time and pre-op instructions confirmed with pt. Pt denies any questions at this time.
--- NOTE | 2021-01-01 05:54 | ECG_ITS ---
Measurements Intervals [place] Rate: 96 P: 69 MN: 131 QRS: 64 QRSD: 89 T: 72 QT: 324 QTc: 411 Interpretive Statements SINUS RHYTHM NORMAL ECG Electronically Signed On 01-01-2021 7:23:54 CDT by Gui Trinh D.O.
--- NOTE | 2021-01-01 06:30 | WPDANESEPPF ---
Anes - Initial Pre Proc Eval Procedure: Operation Date: 01/01/21 07:30 Proposed Procedures p Excision Right Thumb Squamous Cell Carcinoma with Frozen Section, - Sukumar Mireles MD s Possible Amputation Right Thumb - Sukumar Mireles MD Date/Time: 01/01/21 06:30 Surgeon: Sukumar Mireles MD Pre Op Diagnosis: sq cell CA right thumb Patient Data Age: 55 Gender: M Height: 5 ft 11 in Weight: 74.8 kg Allergies Allergy/AdvReac Type Severity Reaction Status Date / Time No Known Allergies Allergy Verified 12/18/20 12:13 Home Medications Medication Instructions Recorded Confirmed Type cyanocobalamin 2 mg-levomefolate 1 tablet PO DAILY #90 tablet 04/10/20 12/18/20 Rx ayaz 1.13 mg-pyridoxine 25 mg tablet omeprazole 40 mg capsule,delayed 40 mg PO BID #180 cap 10/26/20 12/18/20 Rx release thiamine HCl (vitamin B1) 50 mg 50 mg PO DAILY #90 tablet 12/07/20 12/18/20 Rx tablet lisinopril 10 mg PO DAILY 12/10/20 12/18/20 History vitamin B complex [B 1 tablet PO DAILY 12/10/20 12/18/20 History Complex-Vitamin B12] Patient hx anesthesia problems: none Family hx anesthesia problems: none PMFSH Past Medical History Medical History (Updated 12/03/20 @ 10:34 by Bozena Rivera RN) Alcohol abuse Alcohol abuse Anxiety Babin's esophageal ulceration GERD (gastroesophageal reflux disease) Hypertension Leukemia Rheumatoid arthritis Seizure Surgical History Surgical History (Updated 01/01/21 @ 06:33 by Severo Guzman MD) H/O inguinal hernia repair Surgical history unknown Family History Family History Father Gastric cancer Other Alzheimer's dementia Carcinoma of colon Diabetes mellitus Glaucoma Social History Social History Smoking packs per day: 2 Smoking cigarettes per day: 40.0 Years smoked: 30 Smoking pack-years: 60.00 Smoking status: Current every day smoker Tobacco type: cigarettes Second hand tobacco smoke exposure: Yes Alcohol intake: current Drinks per week: 42 Substance use: never Substance use type: does not use Living arrangements: with family Gender identity (if verbalized by the patient): Male Spiritual care concerns: No Agree to blood products: Yes Anes - Eval Final PreProcedure Day of Procedure 01/01/21 06:30 Patient weight: normal Heart: regular rate and rhythm Lungs: clear to auscultation Airway: Mallampati scale class II and special considerations poor dentition Neurological: alert and oriented Last oral intake: >/= 8 hours ASA classification: III Emergent: no Anesthetic plan: proceed Anesthesia type and monitoring: general ETT and standard monitoring Informed Consent: The patient's anesthetic plan and its attendant risks and benefits were discussed with the patient/family/POA. Questions were solicited and answers provided to the satisfaction of the patient/family/POA.
[2021-01-01] MEDS: LACTATED RINGERS 1,000 ML 30 ML IV CONT (06:35)
[2021-01-01 06:54] VITALS: BP 136/95; PULSE 109; RESP 16; TEMP 36.7; O2SAT 98
--- NOTE | 2021-01-01 07:04 | WPDHPUPDATE1 ---
History and Physical Update Update Date/Time: 01/01/21 07:04 History and Physical has been reviewed, including an updated exam of the patient. There are NO changes in the patient's condition. Risks, benefits, and alternatives have been discussed and questions answered. Patient agrees to proceed with procedure.
[2021-01-01] MEDS: ceFAZolin 2 GM/D5W 50 ML 2 GM/50 ML BAG IVPB (07:23)
[2021-01-01] MEDS: LIDO 1%/EPINEPHRINE 1:100,000 50 ML VIAL 30 ML INFILTRATE (08:16)
[2021-01-01 09:02] VITALS: BP 112/67; PULSE 98; RESP 12; TEMP 36.6; O2SAT 99
[2021-01-01 09:15] VITALS: BP 108/65; PULSE 87; RESP 18; O2SAT 92
--- NOTE | 2021-01-01 09:28 | PM.PROC ---
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 I want them to be very realistic about the risks involved as well as expectations. Again today we went all the options making sure they were well informed. Discussed the protocol. Our plan. Aftercare. All questions answered and consent obtained. They voiced understanding. He was taken to the operating room placed supine on the operating room table. Anesthesia provided by anesthesiology and prepped and draped in a standard sterile fashion. Surgical time-out was taken. 1% lidocaine and 0.25% Marcaine with epinephrine was used to provide a digital block. Tourniquet was inflated to 250 mmHg. Fifteen blade used to make an incision around the obvious portion. This included the nail as well as the nail sterile matrix. I did remove the nail prior to proceeding. Tourniquet released. Pathology believe we had clear margins. There was a small section around 9:00 a.m. that was deep near the bone. Also central deep at the bone level. This did not appear to be an aggressive invasive and pathology suspected he likely has a clear margin at the periosteum. Unfortunately this deep margin is bone and they were unable to do frozen section on this. We had a lengthy discussion as well as discussed with emergency contact and proceeded with shaving the superficial portion of the bone sending it to pathology to see if there is any invasive carcinoma in the bone. Xeroform dressing was placed. He was taken to the PACU without difficulty. All instrument sponge counts were correct at the end of the case. Anesthesia: GLMA Surgeon: Sukumar Mireles MD Estimated blood loss (mL): 2 Drains: No Packing: Yes (Bulky dressing) Pathology: yes (SCC right dorsal thumb) Complications: No immediate complications Condition: stable Disposition: PACU Findings: The superficial bone taken from dorsum right thumb and sent to pathology as permanent section as they were unable to do frozen section on this.
[2021-01-01 09:30] VITALS: BP 122/73; PULSE 87; RESP 12; O2SAT 96
[2021-01-01 09:34] VITALS: BP 123/72; PULSE 78; RESP 20
[2021-01-01 10:00] VITALS: BP 116/65; PULSE 70; RESP 20
== END 2021-01-01 10:15 | disposition home or self-care (01) ==
PROVIDERS: PCP Family Medicine; Visit Provider Surgery Plastic and Reconstructive Surgery
PROC: (CPT 26210; principal; 2021-01-01 07:30)
DX: C44.622 Squamous cell carcinoma of skin of right upper limb, including shoulder (principal); I10 Essential (primary) hypertension; K21.9 Gastro-esophageal reflux disease without esophagitis; M06.9 Rheumatoid arthritis, unspecified; F41.9 Anxiety disorder, unspecified; Z85.6 Personal history of leukemia; F17.210 Nicotine dependence, cigarettes, uncomplicated
CPT/HCPCS: 26210; 88305; 88307; 88309; 88311; 88331; 88332; 93005; C9803; J0690; J1100; J2250; J2405; J2704; J3010; J7120; U0003; U0005

== ENCOUNTER → 2021-01-17 16:20 | Outpatient (REF) | payer MEDICARE, SELFPAY | LOC: ANHLAB 16:20 | PROVIDERS: PCP Family Medicine; Visit Provider Surgery Plastic and Reconstructive Surgery | DX: C44.622 Squamous cell carcinoma of skin of right upper limb, including shoulder (principal) | CPT/HCPCS: 88305 ==

== ENCOUNTER 2021-07-03 21:43 | Emergency (ER) | payer MEDICARE, SELFPAY ==
--- NOTE | ~2021-07-03 | CT_ITS ---
EXAMINATION: CT brain wo con INDICATION: Transient alteration of awareness COMPARISON: 11/01/2019 TECHNIQUE: Standard unenhanced head CT. The dose-length product (DLP) was 605.33 mGy-cm. The mA was a djusted according to patient size. Iterative reconstruction technique was employed. FINDINGS: There is no intracranial hemorrhage, acute infarction, or abnormal mass lesion. The ventric les are normal. There is no abnormal mass effect or midline shift. The cameron-white matter differentiat ion is normal. The basal cisterns are patent. The orbits are normal. The paranasal sinuses, mastoids and calvarium are normal. IMPRESSION: 1. No acute intracranial abnormality. Reviewed, dictated and finalized at location A.
[2021-07-03 22:07] VITALS: BP 139/86; PULSE 80; RESP 14; TEMP 36.7; O2SAT 100
--- NOTE | 2021-07-03 22:25 | ECG_ITS ---
Measurements Intervals [place] Rate: 76 P: 67 MT: 140 QRS: 60 QRSD: 88 T: 68 QT: 378 QTc: 426 Interpretive Statements SINUS RHYTHM NORMAL ECG Electronically Signed On 07-04-2021 6:27:25 CDT by Gui Trinh D.O.
[2021-07-03 22:43] VITALS: BP 137/78; PULSE 76; RESP 16; O2SAT 99
[2021-07-03] MEDS: SODIUM CHLORIDE 0.9% IV 1,000 ML 150 ML IV CONT (22:57)
[2021-07-03 23:05] LABS: Basophils Absolute Auto 0.1 K/mm3 (0.0-0.1); Basophils Percent Auto 0.5 % (0.2-1.2); Eosinophils Absolute Auto 0.1 K/mm3 (0-0.3); Eosinophils Percent Auto 0.6 % (0-4.4); Hematocrit 40.2 % (42.0-52.0); Hemoglobin 14.1 g/dL (14.0-18.0); Immature Granulocyte Absolute 0.03 K/mm3 (0.00-0.031); Immature Granulocyte Percent A 0.3 % (0-0.5); Lymphocytes Absolute Auto 4.25 K/mm3 (0.9-3.2); Lymphocytes Percent Auto 38.3 % (18.3-44.2); Mean Corpuscular HGB Conc 35.1 g/dl (32-36); Mean Corpuscular Hemoglobin 32.5 pg (26-34); Mean Corpuscular Volume 92.6 fl (80-100); Mean Platelet Volume 9.9 fl (7.4-10.4); Monocytes Absolute Auto 0.9 K/mm3 (0.1-0.6); Monocytes Percent Auto 8.5 % (2.6-8.5); Neutrophils Absolute Auto 5.8 K/mm3 (1.3-6.7); Neutrophils Percent Auto 51.8 % (45.5-73.1); Platelet Count Result 219 k/mm3 (150-375); Red Blood Count 4.34 M/mm3 (4.6-6.20); Red Cell Distribution Width 11.9 % (11.5-14.5); White Blood Count 11.1 K/mm3 (4.5-10.0)
[2021-07-03 23:18] LABS: Ethanol < 10 mg/dL (<10)
[2021-07-03 23:19] LABS: Alanine Aminotransferase 25 U/L (4-50); Albumin Level 4.3 g/dL (3.5-5.1); Alkaline Phosphatase 64 U/L (38-126); Anion Gap 9 mmol/L (8-16); Aspartate Amino Transferase 53 U/L (17-59); Bilirubin,Total 0.9 mg/dL (0.2-1.3); Blood Urea Nitrogen 3 mg/dL (9-20); Calcium 9.1 mg/dL (8.4-10.2); Carbon Dioxide 22 mmol/L (22-30); Chloride 91 mmol/L (98-107); Estimated CRCL calculation 144 ml/min; Estimated Glomerular Filt Rate > 60; Glucose 94 mg/dL (65-110); Sodium 122 mmol/L (137-145)
[2021-07-03 23:31] LABS: Troponin I < 0.012 ng/mL (0.000-0.034)
--- NOTE | 2021-07-03 23:49 | ED.NEUROSD ---
HPI - Neuro Symptoms/Deficit General Chief Complaint: Neuro Symptoms/Deficit Stated Complaint: altered mental status Time Seen by Provider: 07/03/21 22:22 Source: patient Mode of arrival: ambulatory Limitations: no limitations History of Present Illness HPI Narrative: 56-year-old with a history of hypertension, remote history of seizure was brought in by son with slurring of the words earlier this evening. Patient states he was drinking beer and his words were slurring at that time. He states his speech at this time is clear. He also states that he had minor headache. No history of fall. Denies any weakness. Onset (ago): hour(s) (2) Timing confirmed by: family member Location: speech Severity: mild Relieving factors: none Exacerbating factors: none Context: sudden onset On Anticoagulants: No Associated symptoms: denies other symptoms Related Data Home Medications Medication Instructions Recorded Confirmed vitamin B complex [B 1 tablet PO DAILY 12/10/20 01/21/21 Complex-Vitamin B12] Allergies Allergy/AdvReac Type Severity Reaction Status Date / Time No Known Allergies Allergy Verified 07/03/21 22:56 Review of Systems Review of Systems: All systems reviewed & are unremarkable except as noted in HPI and below Constitutional: Constitutional: Reports no additional constitutional complaints Eyes: Eyes: Reports no additional eye complaints ENT: Reports system reviewed and no additional complaints, except as documented Cardiovascular: Cardiovascular: Reports no additional cardiovascular complaints Respiratory: Respiratory: Reports no additional respiratory complaints Gastrointestinal: Gastrointestinal: Reports no additional gastrointestinal complaints Musculoskeletal: Musculoskeletal: Reports no additional musculoskeletal complaints Neurologic: Reports as per HPI [facility] Past Medical History Medical History Alcohol abuse Alcohol abuse Anxiety Babin's esophageal ulceration GERD (gastroesophageal reflux disease) Hypertension Leukemia Rheumatoid arthritis Seizure Surgical History Surgical History H/O inguinal hernia repair Surgical history unknown Family History Family History Father Gastric cancer Other Alzheimer's dementia Carcinoma of colon Diabetes mellitus Glaucoma Social History Social History Smoking packs per day: 2 Smoking cigarettes per day: 40.0 Years smoked: 30 Smoking pack-years: 60.00 Smoking status: Current every day smoker Tobacco type: cigarettes Second hand tobacco smoke exposure: Yes Alcohol intake: current Drinks per week: 42 Alcohol use details: 10-15 beer/day Substance use: never Substance use type: does not use Gender identity (if verbalized by the patient): Male Spiritual care concerns: No Agree to blood products: Yes Exam Narrative: GENERAL: Well-appearing, well-nourished, and in no acute distress. HEAD: Normocephalic, atraumatic. EYES: PERRLA and EOMI. ENT: Nares clear, no rhinorrhea or epistaxis. Mucous membranes moist. No facial droop NECK: Supple. CHEST: Clear to auscultation. No respiratory distress. HEART: Regular rate and rhythm. No murmur heard. Normal peripheral pulses. ABDOMEN: Soft, nontender, nondistended, normal active bowel sounds. EXTREMITIES: Normal range of motion. No edema. SKIN: Warm, dry, no rash. NEURO: No focal deficits. Alert and oriented x3. PSYCH: Normal mood and affect. Course Course Emergency Course: Patient had no neuro deficit while he was here in the ER. His NIH score was 0. I did give him a 1 L of normal saline. Patient states he is feeling much better. Informed him about his lab work, CT findings. Advised him to take aspirin daily. Follow-up with the neurolog
[2021-07-04 00:18] VITALS: BP 134/79; PULSE 80; RESP 17; O2SAT 98
== END 2021-07-04 00:20 | disposition home or self-care (01) ==
LOC: ANHED 07-04 00:06
PROVIDERS: Emergency Provider Family Medicine; PCP Family Medicine
DX: R51.9 Headache, unspecified (principal); R47.81 Slurred speech; F17.210 Nicotine dependence, cigarettes, uncomplicated; K21.9 Gastro-esophageal reflux disease without esophagitis; I10 Essential (primary) hypertension; Z79.899 Other long term (current) drug therapy
CPT/HCPCS: 36415; 70450; 80053; 80307; 84484; 85025; 93005; 96360; 99284; J7030